=== PATIENT | female | born 1970 | race Two or more races ===

== ENCOUNTER 2022-08-29 04:06 | Day surgery (SDC) | payer OTHER ==
[2022-08-29 07:27] VITALS: BMI 26.5
[2022-08-29] MEDS ORDERED: LIDOCAINE HCL 1%, 10 MG/ML (20ML VIAL) ONE (08:42)
[2022-08-29] MEDS ORDERED: MIDAZOLAM HCL 2 MG/2 ML SINGLE DOSE VIAL ONE (09:06)
[2022-08-29] MEDS ORDERED: PROPOFOL 20 ML ONE (09:06)
[2022-08-29] MEDS ORDERED: LIDOCAINE HCL 1%, 10 MG/ML (50 mL VIAL) INF ONE ×2 (09:36)
[2022-08-29] MEDS ORDERED: KETOROLAC TROMETHAMINE 30 MG/1 ML VIAL ONE (09:43)
[2022-08-29] MEDS ORDERED: ACETAMINOPHEN 1000 MG/100 ML BAG IVPB ONE (10:38)
[2022-08-29] MEDS ORDERED: PROMETHAZINE HCL 25 MG/1 ML VIAL IVPUSH PRN (10:38)
[2022-08-29] MEDS ORDERED: ONDANSETRON 4 MG/2 ML VIAL IVPUSH PRN (10:38)
[2022-08-29] MEDS ORDERED: oxyCODONE HCL 5 MG TABLET PO PRN (10:38)
[2022-08-29] MEDS ORDERED: LACTATED RINGERS SOLUTION 1,000 ML IV SCH (10:45)
[2022-08-29 11:49] VITALS: RESP 18
[2022-08-29 12:28] VITALS: BP 117/70; PULSE 76; TEMP 97.6
== END 2022-08-29 12:39 | disposition home or self-care (01) ==
LOC: JASU-SURG 04:06
PROVIDERS: ATTEND Surgery
PROC: 0HBU0ZX Excision of Left Breast, Open Approach, Diagnostic (ICD-10-PCS; principal; 2022-08-29 09:00)
DX: N60.32 Fibrosclerosis of left breast (principal)
CPT/HCPCS: 71045-TC-FY; 88307-TC; 88342-TC; 94760